=== PATIENT | male | born 1995 | race Caucasian/White ===

== ENCOUNTER → 2016-12-06 | Outpatient (CLI) | payer BC ==
[~2016-12-06] MED LIST: ACET-749 PO; AMX500 PO; CPROT OT; IBUP-1050 PO; SNGCH4 PO; TETR250C3 PO; [UNRECOGNIZED DRUG - REMARK] EX
== END | disposition home or self-care (01) ==
LOC: C.LABPVFM 14:11
PROVIDERS: ATTEND Nurse Practitioner
DX: J02.9 Acute pharyngitis, unspecified (principal)